=== PATIENT | female | born 2000 | race African-American/Black ===

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

== ENCOUNTER 2019-11-18 10:53 | Emergency (ER) | payer MEDICAID ==
[~2019-11-18] VITALS: Ht 160 cm; Wt 64.9 kg
[2019-11-18 11:04] VITALS: BP 118/72
[2019-11-18 11:32] LABS: Basophils # (auto) 0 10 ^3/uL (0-0.2); Basophils % (auto) 0.4 % (0.0-2.0); Eosinophils # (auto) 0.1 10 ^3/uL (0-0.8); Eosinophils % (auto) 0.9 % (0.0-7.0); Lymphocytes # (auto) 2.4 10 ^3/uL (0.4-5.4); Lymphocytes % (auto) 34.8 % (10.0-50.0); Mean Corpuscular Hemoglobin 27.3 pg (28.0-32.0); Mean Corpuscular Hgb Conc. 32.4 g/dL (32.0-36.0); Mean Corpuscular Volume 84.3 fL (80.0-100.0); Monocytes # (auto) 0.8 10 ^3/uL (0-1.3); Neutrophils # (auto) 3.6 10 ^3/uL (1.6-8.6); Neutrophils % (auto) 52.9 % (37.0-80.0); Platelet Count (auto) 114 10^3/uL (140-450); Red Blood Cells 4.75 10^6/uL (4.0-5.20); Red Cell Distribution Width 14.1 % (11.8-14.3); White Blood Cell 6.9 10^3/uL (4.4-10.8)
[2019-11-18 12:04] LABS: Urine Bacteria NONE SEEN /hpf (None Seen); Urine Blood Negative /uL (Negative); Urine Mucus FEW (None Seen); Urine Pregnacy Test Negative (Negative); Urine Specific Gravity 1.028 (1.001-1.035); Urine WBC 12 /hpf (0 - 5)
[2019-11-18 12:28] LABS: Alcohol, Urine < 3.0 mg/dL (0-5); Amphetamine Screen, Urine NEGATIVE (NEGATIVE); Barbiturate Scree,Urine NEGATIVE (NEGATIVE); Benzodiazephine Screen, Urine NEGATIVE (NEGATIVE); Cocaine Screen, Urine NEGATIVE (NEGATIVE); Opiate Scree,Urine NEGATIVE (NEGATIVE); Phencyclidine Screen, Urine NEGATIVE (NEGATIVE)
[2019-11-18 12:35] LABS: Cannabinoid Screen, Urine POSITIVE (NEGATIVE)
[2019-11-18 12:40] LABS: Albumin 4.1 g/dL (3.4-5.0); Anion Gap 5 (5-15); BUN/Creatinine Ratio 17.6; Blood Alcohol < 3.0 mg/dL (0-5); Blood Urea Nitrogen 12 mg/dL (7-18); Carbon Dioxide 28 mmol/L (21-32); Chloride 104 mmol/L (98-107); GFR African American 142 mL/min; GFR Non-African American 117 mL/min; Glucose 87 mg/dL (74-106); Potassium 3.4 mmol/L (3.5-5.1); Sodium 137 mmol/L (136-145)
[2019-11-18 12:54] LABS: Alanine Aminotransferase 29 U/L (13-56); Alkaline Phosphatase 66 U/L (45-117); Aspartate Aminotransferase 21 U/L (15-37); Bilirubin, Total 0.3 mg/dL (0.2-1.0); Total Protein 8.1 g/dL (6.4-8.2)
== END 2019-11-18 15:20 | disposition left against medical advice (07) ==
LOC: ER 10:57
DX: R11.2 Nausea with vomiting, unspecified (principal); Z53.21 Procedure and treatment not carried out due to patient leaving prior to being seen by health care provider
CPT/HCPCS: 36415; 80053; 80307; 80320; 81001; 81025; 85025

== ENCOUNTER 2020-03-03 03:59 | Emergency (ER) | payer MEDICAID, OTHER ==
[~2020-03-03] VITALS: Ht 160 cm; Wt 61.2 kg
[2020-03-03 06:42] LABS: Basophils # (auto) 0 10 ^3/uL (0-0.2); Basophils % (auto) 0.4 % (0.0-2.0); Eosinophils # (auto) 0 10 ^3/uL (0-0.8); Eosinophils % (auto) 0.3 % (0.0-7.0); Hematocrit 37.8 % (36.0-46.0); Hemoglobin 12.3 g/dL (12.2-16.2); Lymphocytes # (auto) 1.7 10 ^3/uL (0.4-5.4); Lymphocytes % (auto) 17.6 % (10.0-50.0); Mean Corpuscular Hemoglobin 27.7 pg (28.0-32.0); Mean Corpuscular Hgb Conc. 32.6 g/dL (32.0-36.0); Mean Corpuscular Volume 85.2 fL (80.0-100.0); Monocytes # (auto) 0.9 10 ^3/uL (0-1.3); Monocytes % (auto) 9.4 % (0.0-12.0); Neutrophils # (auto) 7.1 10 ^3/uL (1.6-8.6); Neutrophils % (auto) 72.3 % (37.0-80.0); Platelet Count (auto) 91 10^3/uL (140-450); Red Blood Cells 4.43 10^6/uL (4.0-5.20); Red Cell Distribution Width 14.7 % (11.8-14.3); White Blood Cell 9.8 10^3/uL (4.4-10.8)
[2020-03-03] MEDS ORDERED: SODIUM CHLORIDE 0.9% 1,000 ML IV ONE (06:48)
[2020-03-03 06:49] LABS: INR 1.12 (0.9-1.15); Partial Thromboplastin Time 28.2 sec (23.64-32.05)
[2020-03-03 06:53] LABS: Albumin 4.3 g/dL (3.4-5.0); Calcium 9.2 mg/dL (8.5-10.1); Magnesium 2.2 mg/dL (1.6-2.6); Potassium 4.1 mmol/L (3.5-5.1)
[2020-03-03 06:56] LABS: BUN/Creatinine Ratio 19.7; Bilirubin, Total 0.5 mg/dL (0.2-1.0); Total Protein 7.7 g/dL (6.4-8.2)
[2020-03-03 08:00] VITALS: BP 114/70
[2020-03-03 08:17] LABS: Urine Bacteria NONE SEEN /hpf (None Seen); Urine Blood Negative /uL (Negative); Urine Mucus MODERATE (None Seen); Urine Specific Gravity 1.035 (1.001-1.035); Urine WBC 6 /hpf (0 - 5)
[2020-03-03] MEDS ORDERED: KETOROLAC TROMETH 30 MG/ML 1ML VIAL IV ONE (08:45)
[2020-03-03] MEDS ORDERED: cefTRIAXone 1GM/50ML D5W 50 ML IV ONE (09:00)
== END 2020-03-03 10:01 | disposition home or self-care (01) ==
LOC: ER 04:01
DX: N39.0 Urinary tract infection, site not specified (principal)
CPT/HCPCS: 36415; 80053; 81001; 81025; 82150; 83690; 83735; 84702; 85025; 85610; 85730; 96365; 96375; 99284; J0696; J1885; J7030

== ENCOUNTER 2023-09-05 16:51 | Emergency (ER) | payer MEDICAID, OTHER ==
[~2023-09-05] VITALS: Ht 160 cm; Wt 53.7 kg
[2023-09-05 21:30] VITALS: BP 107/76; PULSE 64; RESP 18; TEMP 98.1; O2SAT 100
[2023-09-05] MEDS ORDERED: IBUP-1454 PO (21:38)
[2023-09-05] MEDS ORDERED: BACL20TA PO (21:38)
== END 2023-09-05 22:03 | disposition home or self-care (01) ==
LOC: ER 16:51
DX: S46.811A Strain of other muscles, fascia and tendons at shoulder and upper arm level, right arm, initial encounter (principal); S29.012A Strain of muscle and tendon of back wall of thorax, initial encounter; W18.39XA Other fall on same level, initial encounter; Y93.89 Activity, other specified; Y92.89 Other specified places as the place of occurrence of the external cause; Y99.8 Other external cause status

== ENCOUNTER 2024-10-29 05:26 | Emergency (ER) | payer MEDICAID ==
[~2024-10-29] VITALS: Ht 160 cm; Wt 58.3 kg
[~2024-10-29 05:26] MED LIST: BACL20TA PO; IBUP-1454 PO
--- NOTE | 2024-10-29 06:55 | ED.PDOC ---
History of Present Illness HPI Comments 23-year-old female with no reported PMHx presents with a chief complaint of flu- like symptoms x 1 week. Patient reports that her symptoms are sore throat, ear pain, and nausea. Patient mentions that she also has been having intermittent fevers, but is currently afebrile. Patient denies any vomiting episodes with her nausea. Patient reports that she has no sick contacts at home. No other symptoms or modifying factors present at this time. Chief Complaint: Flu like Time Seen by MD: 06:50 Primary Care Provider: ? 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 Family History Family History: Unknown Social History Smoker: Non-Smoker Alcohol: Denies ETOH Use Drugs: Denies Drug Use Lives In: Home Constitutional: denies: chills, diaphoresis, fatigue, fever, malaise, sweats, weakness, others EENTM: reports: ear pain, throat pain; denies: blurred vision, double vision, ear bleeding, ear discharge, ear drainage, ear ringing, eye pain, eye redness, hearing loss, mouth pain, mouth swelling, nasal discharge, nose bleeding, nose congestion, nose pain, photophobia, tearing, throat swelling, voice changes, others Respiratory: denies: cough, hemoptysis, orthopnea, SOB at rest, shortness of b reath, SOB with excertion, stridor, wheezing, others Cardiovascular: denies: chest pain, dizzy spells, diaphoresis, Dyspnea on exertion, edema, irregular heart beat, left arm pain, lightheadedness, palpitations, PND, syncope, others Gastrointestinal: reports: nausea; denies: abdomen distended, abdominal pain, blood streaked bowels, constipated, diarrhea, dysphagia, difficulty swallowing, hematemesis, melena, poor appetite, poor fluid intake, rectal bleeding, rectal pain, vomiting, others Genitourinary: denies: abnormal vagina bleeding, burning, dyspareunia, dysuria, flank pain, frequency, hematuria, incontinence, pain, , vagina discharge, urgency, others Neurological: denies: dizziness, fainting, headache, left sided numbness, left sided weakness, numbness, paresthesia, pre-existing deficit, right sided numbness, right sided weakness, seizure, speech problems, tingling, tremors, weakness, others Musculoskeletal: denies: back pain, gout, joint pain, joint swelling, muscle pain, muscle stiffness, neck pain, others Integumetry: denies: bruises, change in color, change in hair/nails, dryness, laceration, lesions, lumps, rash, wounds, others Allergic/Immunocompromised: denies: Difficulty Healing, Frequent Infections, Hives, Itching, others Hematologic/Lymphatic: denies: anemia, blood clots, easy bleeding, easy brui sing, swollen glands, others Endocrine: denies: excessive hunger, excessive sweating, excessive thirst, ex cessive urination, flushing, intolerance to cold, intolerance to heat, unexplained weight gain, unexplained weight loss, others Psychiatric: denies: anxiety, bipolar disorder, depression, hopeless, panic disorder, schizophrenia, sleepless, suicidal, others All Other Systems: Reviewed and Negative Physical Exam General Appearance: Moderate Distress, Normal HEENT: Pharyngeal Erythema, Tonsillar Exudate (r) Neck: Full Range of Motion, Non-Tender, Normal, Normal Inspection Respiratory: Chest Non-Tender, Lungs Clear, No Accessory Muscle Use, No Respiratory Distress, Normal Breath Sounds Cardiovascular: No Edema, No JVD, No Murmur, No Gallop, Normal Peripheral Pulses, Regular Rate/Rhythm Breast Exam: Deferred Gastrointestinal: No Organomegaly, Non Tender, No Pulsatile Mass, Normal Bowel Sounds, Soft Genitalia: Deferred Pelvic: Deferred Rectal: Deferred Extremities: No calf tenderness, Normal capillary refill, Normal inspection, Normal range of motion, Non-tender, No pedal edema Musculoskeletal : Apperance: Normal Neurologic: Alert, band saw 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 Was a procedure done?: No Differential Dx Considerations may include: Pharyngitis Anemia X-Ray, Labs, Meds, VS Vital Signs Date Time Temp Pulse Resp B/P (MAP) Pulse Ox O2 Delivery O2 Flow Rate FiO2 10/29/24 07:30 99.0 85 16 116/72 (87) 99 99.0 10/29/24 05:38 99.0 126 16 104/73 (83) 100 Lab Test 10/29/24 07:03 Range/Units White Blood Count Pending Red Blood Count Pending Hemoglobin Pending Hematocrit Pending Mean Corpuscular Volume Pending Mean Corpuscular Hemoglobin Pending Mean Corpuscular Hemoglobin Concent Pending Red Cell Distribution Width Pending Platelet Count Pending Mean Platelet Volume Pending Neutrophils (%) (Auto) Pending Lymphocytes (%) (Auto) Pending Monocytes (%) (Auto) Pending Basophils (%) (Auto) Pending Neutrophils # (Auto) Pending Lymphocytes # (Auto) Pending Monocytes # (Auto) Pending Patient alert. Abdomen is soft nontender. On examination of the throat there is redness along with the right tonsillar exudate. Vitals stable. Answering all questions. No sign of any abdominal pathology. Ambulating. No pain on movement. Heart rate within normal limits. No leg swelling. No shortness a breath. Saturation pristine on room air. Was given Rocephin. Was given prescription of amoxicillin antibiotic. Explained to the patient. Was told to follow up with her primary care physician. Was told to come back if there is any problem. Time of 1ST Reevaluation: 07:08 Reevaluation 1ST: Improved Patient Education/Counseling: Diagnosis, Treatment, Prognosis Family Education/Counseling: Diagnosis, Treatment, Prognosis Departure 1 Departure Time of Disposition: 07:34 Impression: Primary Impression: Acute tonsillitis Qualified Codes: J03.90 - Acute tonsillitis, unspecified Additional Impression: Pharyngitis Qualified Codes: J02.9 - Acute pharyngitis, unspecified Disposition: HOME / SELF CARE / HOMELESS Condition: Good e-Prescriptions Amoxicillin Trihydrate (Amoxicillin) 500 Mg Cap 1 CAP PO TID for 10 Days, #30 CAP Prov: CEASAR,MICHAEL MD 10/29/24 Discharged With: Self Critical Care Note Critical Care Time?: No Stability Stability form required: No Heart Score Heart Score: Heart Score Response (Comments) Value History N/A 0 EKG N/A 0 Age N/A 0 Risk Factors N/A 0 Troponin N/A 0 Total 0 I personally scribed for MICHAEL MCDONOUGH MD ([email or web address]) on 10/29/24 at 06:55. Electronically submitted by Jatinder Geiger ([email or web address]). MICHAEL MCDONOUGH MD Oct 29, 2024 06:55
[2024-10-29 07:30] VITALS: PULSE 90; RESP 16; O2SAT 99
[2024-10-29 07:35] LABS: Urine Bacteria None Seen /hpf (None Seen)
[2024-10-29] MEDS ORDERED: AMOX500C2 PO (07:35)
[2024-10-29] MEDS: cefTRIAXone SOD 1,000 MG VL IM ONE (07:41)
[2024-10-29 07:51] LABS: Urine Blood Negative /uL (Negative); Urine Clarity Clear (Clear); Urine Color Light-Yellow (Yellow); Urine Mucus FEW (None Seen); Urine Protein, UAD Negative (Negative); Urine Squamous Epithelial Cell FEW /hpf (<5); Urine Urobilinogen Normal (Negative); Urine WBC < 1 /HPF (0-5)
[2024-10-29 07:54] LABS: Basophils # (auto) 0 10 ^3/uL (0-0.2); Basophils % (auto) 0.4 % (0.0-2.0); Eosinophils # (auto) 0 10 ^3/uL (0-0.8); Eosinophils % (auto) 0.3 % (0.0-7.0); Hematocrit 40.6 % (36.0-46.0); Hemoglobin 13.1 g/dL (12.2-16.2); Lymphocytes # (auto) 0.8 10 ^3/uL (0.4-5.4); Lymphocytes % (auto) 12.3 % (10.0-50.0); Mean Corpuscular Hemoglobin 27.3 pg (28.0-32.0); Mean Corpuscular Hgb Conc. 32.2 g/dL (32.0-36.0); Mean Corpuscular Volume 84.6 fL (80.0-100.0); Monocytes % (auto) 15.1 % (0.0-12.0); Neutrophils # (auto) 4.5 10 ^3/uL (1.6-8.6); Neutrophils % (auto) 71.9 % (37.0-80.0); Nucleated Red Blood Cells % 0.1 %; Platelet Count (auto) 93 10^3/uL (140-450); Red Blood Cells 4.79 10^6/uL (4.0-5.20); Red Cell Distribution Width 13.8 % (11.8-14.3); White Blood Cell 6.3 10^3/uL (4.4-10.8)
[2024-10-29 08:13] VITALS: BP 119/77; PULSE 90; RESP 16; O2SAT 99
[2024-10-29 08:33] VITALS: TEMP 100.4
[2024-10-29] MEDS: ACETAMINOPHEN 325 MG TAB PO ONE (08:33)
== END 2024-10-29 08:40 | disposition home or self-care (01) ==
LOC: ER 05:26
DX: J03.90 Acute tonsillitis, unspecified (principal); R50.9 Fever, unspecified; R11.0 Nausea; H92.09 Otalgia, unspecified ear; Z79.899 Other long term (current) drug therapy; Z79.1 Long term (current) use of non-steroidal anti-inflammatories (NSAID)
CPT/HCPCS: 36415; 81001; 85025; 96372; 99283; J0696

== ENCOUNTER 2024-10-30 16:43 | Emergency (ER) | payer MEDICAID ==
[~2024-10-30] VITALS: Ht 160 cm; Wt 57.0 kg
[~2024-10-30 16:43] MED LIST changes: +AMOX500C2 PO
[2024-10-30] MEDS: ACETAMINOPHEN 650 mg PER 20.3 mL UD PO ONE (18:41)
--- NOTE | 2024-10-30 18:47 | ED.PDOC ---
Eye-HPI HPI Comments 23-year-old female presents to ER with complaints of sore throat x3 days. Patient reports that he has been experiencing sore throat x3 days with associated fever and intermittent nausea x2 days. She rates her current pain an 8/10 to throat with radiation towards her left ear. Notes that she was seen in ER here yesterday and diagnosed with tonsillitis at that time and has been taking amoxicillin along with Tylenol x1 day with slight relief. Patient pr esents to ER with low-grade fever on arrival at 100.2 F, ambulatory, with steady gait, in no distress. Patient also reports that she has been experiencing mild dry cough x1 week. Denies shortness of breath, vomiting, chest pain, hemoptysis, neck pain or any further symptoms/complaints Chief Complaint: Sore Throat Time Seen by MD: 18:08 Primary Care Provider: LACEY Reviewed Notes: Nurses Notes, Medications, Allergies Allergies: Coded Allergies: NO KNOWN ALLERGIES (Unverified , 06/17/16) Home Meds Active Scripts Amoxicillin Trihydrate (Amoxicillin) 500 Mg Cap, 1 CAP PO TID for 10 Days, #30 CAP Prov:MICHAEL MCDONOUGH MD 10/29/24 Baclofen (Baclofen) 20 Mg Tab, 1 TAB PO TID, #30 TAB 2 Refills Prov:ALEKSANDRA NO 09/05/23 Ibuprofen (Ibuprofen) 600 Mg Tab, 1 TAB PO TID, #30 TAB Prov:ALEKSANDRA NO 09/05/23 Information Source: Patient Mode of Arrival: Ambulatory Past Medical History Past Medical History (Other): THROMBOCYTOPENIA Surgical History: Denies all surgeries 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 Family History Family History: Unknown Social History Smoker: Non-Smoker Alcohol: Denies ETOH Use Drugs: Denies Drug Use Lives In: Home Constitutional: reports: others ( STATED IN HPI) EENTM: reports: others ( IN HPI) Respiratory: reports: others ( STATED IN HPI) Cardiovascular: denies: chest pain, dizzy spells, diaphoresis, Dyspnea on exertion, edema, irregular heart beat, left arm pain, lightheadedness, palpi tations, PND, syncope, others Gastrointestinal: reports: others ( STATED IN HPI) Genitourinary: denies: abnormal vagina bleeding, burning, dyspareunia, dysuria, flank pain, frequency, hematuria, incontinence, pain, , vagina discharge, urgency, others Neurological: denies: dizziness, fainting, headache, left sided numbness, left sided weakness, numbness, paresthesia, pre-existing deficit, right sided numbness, right sided weakness, seizure, speech problems, tingling, tremors, weakness, others Musculoskeletal: denies: back pain, gout, joint pain, joint swelling, muscle pain, muscle stiffness, neck pain, others Integumetry: denies: bruises, change in color, change in hair/nails, dryness, laceration, lesions, lumps, rash, wounds, others Allergic/Immunocompromised: denies: Difficulty Healing, Frequent Infections, Hives, Itching, others Hematologic/Lymphatic: denies: anemia, blood clots, easy bleeding, easy bruising, swollen glands, others Endocrine: denies: excessive hunger, excessive sweating, excessive thirst, excessive urination, flushing, intolerance to cold, intolerance to heat, unexplained weight gain, unexplained weight loss, others Psychiatric: denies: anxiety, bipolar disorder, depression, hopeless, panic disorder, schizophrenia, sleepless, suicidal, others Physical Exam General Appearance: No Apparent Distress HEENT: PERRL/EOMI, Pharyngeal Erythema (MILD LEFT-SIDED TONSILLAR SWELLING/ERYTHEMA NOTED WITHOUT EXUDATES. UVULA-NORMAL), TMs Normal (MILD ERYTHEMA/BULGING NOTED TO LEFT TM. 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 Was a procedure done?: No Sedation Sedation?: No EENT DIFF Eye: N/A Sore Throat: Epiglottitis, Mononeucleosis, Peritonsillar Abscess X-Ray, Labs, Meds, VS Vital Signs Date Time Temp Pulse Resp B/P (MAP) Pulse Ox O2 Delivery O2 Flow Rate FiO2 10/30/24 18:41 100.2 10/30/24 16:57 100.2 107 20 115/91 (99) 98 Current Medications Medications (Trade) Dose Ordered Sig/Gagan Route Start Time Stop Time Status Last Admin Acetaminophen (Tylenol Solution Oral) 650 mg ONCE ONCE PO 10/30/24 18:30 10/30/24 18:31 DC 10/30/24 18:41 TYLENOL 600 MG P.O. ORDERED ROCEPHIN 1 G IM ORDERED PREVIOUS CHART VISIT REVIEWED ADVISED TO CONTINUE AMOXICILLIN CURRENTLY PRESCRIBED ADVISED ON OTC TYLENOL 650 MG P.O. Q4 PRN FEVER/PAIN PATIENT TOLERATING P.O. INTAKE WELL AND IN NO DISTRESS DURING ER VISIT/PRIOR TO DISCHARGE DIET EDUCATION DISCUSSED ADVISED TO FOLLOW UP WITH PCP IN 1-2 DAYS PATIENT VERBALIZED UNDERSTANDING AND AGREEABLE WITH CURRENT PLAN OF CARE ADVISED TO RETURN TO ER IMMEDIATELY IF SYMPTOMS WORSEN Time of 1ST Reevaluation: 18:20 Reevaluation 1ST: N/A Patient Education/Counseling: Diagnosis, Treatment, Prognosis, Need For Follow Up Family Education/Counseling: No Family Present Departure 1 Departure Time of Disposition: 18:42 Impression: Primary Impression: Upper respiratory infection Qualified Codes: J06.9 - Acute upper respiratory infection, unspecified Additional Impression: Otitis media of left ear Qualified Codes: H66.92 - Otitis media, unspecified, left ear Disposition: 01 HOME / SELF CARE / HOMELESS Condition: Stable Discharged With: Self Critical Care Note Critical Care Time?: No Stability Stability form required: No Heart Score Heart Score: Heart Score Response (Comments) Value History N/A 0 EKG N/A 0 Age N/A 0 Risk Factors N/A 0 Troponin N/A 0 Total 0 TOMMY CHAVARRIA Oct 30, 2024 18:47
[2024-10-30] MEDS: cefTRIAXone SOD 1,000 MG VL IM ONE (18:48)
[2024-10-30 19:03] VITALS: BP 110/91; PULSE 107; RESP 20; TEMP 98.6; O2SAT 98
== END 2024-10-30 18:58 | disposition home or self-care (01) ==
LOC: ER 16:48
DX: J06.9 Acute upper respiratory infection, unspecified (principal); H66.92 Otitis media, unspecified, left ear; R11.0 Nausea; R50.9 Fever, unspecified
CPT/HCPCS: 96372; 99283; J0696

== ENCOUNTER 2025-01-25 17:23 | Emergency (ER) | payer MEDICAID ==
[~2025-01-25] VITALS: Ht 160 cm; Wt 56.3 kg
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
[2025-01-25 20:13] VITALS: BP 126/91; PULSE 74; RESP 17; TEMP 98.3; O2SAT 100
[2025-01-25] MEDS: OXYCODONE W/ ACETAMINOPHEN 5/325MG TABLET PO ONE (20:13)
[2025-01-25] MEDS: KETOROLAC TROMETH 60MG/2ML VIAL IM ONE (20:14)
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
[2025-01-25] MEDS ORDERED: TIZA-142 PO (21:26)
[2025-01-25] MEDS ORDERED: METH4PAK PO (21:26)
== END 2025-01-25 21:33 | disposition home or self-care (01) ==
LOC: ER 17:26
DX: S06.0X0A Concussion without loss of consciousness, initial encounter (principal); S29.012A Strain of muscle and tendon of back wall of thorax, initial encounter; S13.4XXA Sprain of ligaments of cervical spine, initial encounter; G44.319 Acute post-traumatic headache, not intractable; Z79.1 Long term (current) use of non-steroidal anti-inflammatories (NSAID); Z79.899 Other long term (current) drug therapy; V89.2XXA Person injured in unspecified motor-vehicle accident, traffic, initial encounter; Y93.89 Activity, other specified; Y92.89 Other specified places as the place of occurrence of the external cause; Y99.8 Other external cause status
CPT/HCPCS: 70450; 72125; 72128; 96372; 99285; J1885

== ENCOUNTER 2025-01-30 18:13 | Emergency (ER) | payer MEDICAID ==
[~2025-01-30] VITALS: Ht 160 cm; Wt 56.2 kg
[~2025-01-30 18:13] MED LIST changes: +METH4PAK PO; +TIZA-142 PO
[2025-01-30 19:48] LABS: Urine Bacteria FEW /hpf (None Seen); Urine Blood Negative /uL (Negative); Urine Clarity Turbid (Clear); Urine Color Yellow (Yellow); Urine Mucus MANY (None Seen); Urine Protein, UAD TRACE (Negative); Urine Specific Gravity 1.029 (1.001-1.035); Urine Squamous Epithelial Cell FEW /hpf (<5); Urine Urobilinogen Normal (Negative); Urine WBC 1 /HPF (0-5); Urine pH 6.5 (5.0-9.0)
--- NOTE | 2025-01-30 21:26 | DVH ---
CT HEAD WITHOUT CONTRAST INDICATION: headache COMPARISON: CT HEAD WITHOUT CONTRAST on DOS: 01/25/25 TECHNIQUE: CT of the head without intravenous contrast. RADIATION DOSE: CTDIvol: mGy, DLP: mGy*cm FINDINGS: There is no evidence of intracranial hemorrhage, infarct, extra-axial collection, mass effect, midli ne shift, herniation or hydrocephalus. The ventricles, sulci and cisterns are normal. The coleman-white differentiation is normal. Visualized paranasal sinuses and mastoid air cells are clear. Soft tissues and osseous structures are unremarkable. IMPRESSION: No intracranial abnormality.
[2025-01-30 22:15] VITALS: BP 126/78; PULSE 81; RESP 21; TEMP 98.7; O2SAT 99
[2025-01-30] MEDS: KETOROLAC TROMETH 60MG/2ML VIAL IM ONE (22:28)
[2025-01-30] MEDS: ONDANSETRON ODT 4 MG TAB PO ONE (22:28)
[2025-01-30] MEDS ORDERED: ZOFR4T PO (22:34)
[2025-01-30] MEDS ORDERED: ACE3T PO (22:34)
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
== END 2025-01-30 23:10 | disposition home or self-care (01) ==
LOC: ER 18:13
DX: G43.909 Migraine, unspecified, not intractable, without status migrainosus (principal); R11.0 Nausea
CPT/HCPCS: 70450; 81001; 81025; 96372; 99285; J1885; Q0162

== ENCOUNTER 2025-03-26 21:11 | Emergency (ER) | payer MEDICAID ==
[~2025-03-26] VITALS: Ht 160 cm; Wt 53.6 kg
[~2025-03-26 21:11] MED LIST changes: +ACE3T PO; -METH4PAK PO; -TIZA-142 PO; +ZOFR4T PO
[2025-03-26] MEDS ORDERED: CYCL-837 PO (22:16)
[2025-03-26] MEDS ORDERED: IBUP-1456 PO (22:16)
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
[2025-03-26] MEDS: KETOROLAC TROMETH 60MG/2ML VIAL IM ONE (22:26)
--- NOTE | 2025-03-26 22:38 | DVH ---
CLINICAL INDICATION: lumbar back pain TECHNIQUE: 2 radiographic views of the lumbar spine were obtained. Comparison: None FINDINGS/IMPRESSION: Bony alignment appears normal. There is no compressed vertebra. No spondylolisthesis.
--- NOTE | 2025-03-26 22:41 | DVH ---
EXAM: CT CERVICAL WITHOUT CONTRAST INDICATION: neck pain EXAM DATE: 03/26/2025 10:02 PM COMPARISON: CT CERVICAL WITHOUT CONTRAST on DOS: 01/25/25 TECHNIQUE: Multiple axial CT images of the cervical spine were obtained using bone algorithm. Axial a nd coronal reformatting was done. Bone and soft tissue windows were reviewed. Radiation Dose Information: CT Dose: CTDI volume is 15.1 mGy. Dose-length product is 336.88 mGy*cm FINDINGS: The cervical alignment is intact. No acute cervical spine fracture is identified. The vertebral body heights are intact. No suspicious osseous lesions are identified. No significant degenerative changes are identified. There is no prevertebral soft tissue swelling. IMPRESSION: 1. No evidence of acute cervical spine fracture or traumatic malalignment. All CT scans at this medical facility are performed using dose modulation techniques as appropriate t o a performed exam including the following: Automated exposure control was utilized; adjustment of th e MA and/or KV according to patient size; and use of iterative reconstruction technique.
[2025-03-26 22:50] VITALS: BP 142/95; PULSE 57; RESP 18; TEMP 98.2; O2SAT 100
== END 2025-03-26 22:52 | disposition home or self-care (01) ==
LOC: ER 21:11
DX: S16.1XXA Strain of muscle, fascia and tendon at neck level, initial encounter (principal); S39.012A Strain of muscle, fascia and tendon of lower back, initial encounter; D69.6 Thrombocytopenia, unspecified; Z79.899 Other long term (current) drug therapy; V89.2XXA Person injured in unspecified motor-vehicle accident, traffic, initial encounter; Y93.I9 Activity, other involving external motion; Y92.488 Other paved roadways as the place of occurrence of the external cause; Y99.8 Other external cause status
CPT/HCPCS: 72100; 72125; 96372; 99285; J1885